=== PATIENT | male | born 2000 | race Caucasian/White ===

== ENCOUNTER 2019-01-25 14:50 | Emergency (ER) | payer OTHER, SELFPAY ==
[2019-01-25 14:55] VITALS: BP 122/77; PULSE 73; RESP 16; TEMP 37.1; O2SAT 100
--- NOTE | 2019-01-25 15:21 | W.ED.GENAD ---
Discharge Plan Disposition Patient Disposition: HOME Condition: Stable Discharge Details Chief Complaint: EyeProblem Clinical Impression: Redness of eye, left Primary Care Provider: Jenny,Local ED Provider: Edel Moon Home Meds and New Rx's Prescriptions: No Action No Known Home Meds RF: 0 Discharge Instructions Instructions: Conjunctivitis (ED) Additional Instructions: Apply cool compresses to your left eye several times daily while symptoms present You can alternate Tylenol and Motrin as needed and directed for pain. Start the antibiotic ointment if you develop any pain, crusting, discharge. Follow-up with your primary care doctor next week for reevaluation as needed. Return to the emergency department if you develop any worsening or new concerning symptoms such as headache, worsening blurry vision, dizziness or any other concerns. Discharge Data Discharge Physician: Edel Moon Medical Decision Making 18yo M w/ a c/o left eye redness and itching since last night. States itching is pretty much resolved and denies any complaint of irritation, pain, foreign body sensation, discharge or significant blurry vision, headache or dizziness. Visual acuity 20/20 OU, OD, OS. Left eye notes injected conjunctive but without chemosis, discharge, obvious foreign body with eyelid eversion, with PERRLA, EOMI. Discussed with patient that would recommend fluorescein staining to look for corneal abrasion but he is declining this stating he does not think he got anything in his eye. Discussed that differential diagnosis can include possible abrasion, foreign body which is now possibly removed, allergic versus viral versus bacterial conjunctivitis. Presentation does not appear consistent with uveitis. We will send home with a prescription for erythromycin to start if symptoms do not improve or worsen. He is advised to follow up with a primary care doctor and return here anytime if worse. Medical Records Medical records reviewed: Yes I reviewed the patient's medical records. HPI General Mode of arrival: ambulatory. Date/Time Provider Initiated Documentation: 01/25/19 14:59. Limitations to Documentation: no limitations. Information obtained by: patient. HPI Narrative: Patient is a 18-year-old male who presents for left eye redness and itching since last night. Patient states he is currently a student and denies any injury to his eye. He states last night it began itching and today a friend pointed out to him that his left eye appeared red which patient was unaware of. He does not wear contacts or glasses. He admits to some fuzzy vision like an eyelash is sometimes in my eye but otherwise denies any significant blurry vision. He denies any yellow discharge or crusting, headache, dizziness. He has had recent occasional runny nose and sore throat but states this is resolved. He denies any foreign body sensation. Related Data Home Medications Medication Instructions Recorded Confirmed Unknown [No Known Home Meds] 01/25/19 01/25/19 Allergies Allergy/AdvReac Type Severity Reaction Status Date / Time No Known Allergies Allergy Unverified 01/25/19 14:58 General Stated Complaint: EyeProblem AKILA: 4 Review of Systems All systems reviewed & are unremarkable except as noted in HPI and below Constitutional Constitutional: Reports as per HPI, Denies chills and Denies fever(s) Eyes Eyes: Reports blurry vision, Reports itchy eyes and Reports other (red eye) ENT Ears, Nose, Mouth, and Throat: Denies dizziness, Denies sore throat and Denies throat swelling Cardiovascular Cardiovascular: Denies chest pain and Denies dyspnea Respiratory Respiratory: Denies cough and Denies dyspnea Gastrointestinal Gastrointestinal: Denies abdominal pain, Denies diarrhea and Denies vomiting Genitourinary Genitourinary: Denies hematuria and Denies dysuria Musculoskeletal Musculoskeletal: Denies back pain and Denies numbness Integumentary/Breasts Skin/Breast: Denies lesions and Denies rash Neurologic Neurologic: Denies dizziness, Denies focal weakness and Denies numbness Allergic/Immunologic Allergic/Immunologic: Reports itchy eyes and Denies throat swelling [facility] Medical History Absence epilepsy (Acute) Surgical History No significant past surgical history (Acute) Social History Smoking/Tobacco Use Status: Current every day Tobacco Type: e-cigarettes Alcohol Intake: current Alcohol Intake frequency: a few times a week Substance use type: marijuana Exam Const General: cooperative, healthy appearing and no acute distress HENMT Head: normal to inspection Ears: hearing grossly normal bilaterally, external ears normal and TM's normal bilaterally General nose exam: external nose normal Face and sinus: normal facial exam Mouth: oral mucosae normal Throat: posterior oropharynx normal Eyes General: appearance normal, both eyes and all related structures Periorbital: periorbital findings normal Eyelids: eyelids normal and other (No foreign body noted with left eyelid eversion.) Conjunctivae: conjunctival abnormality left conjunctival injection diffuse; Negative for conjunctival icterus, without chemosis, without discharge, without pallor, without pterygia and without subconjunctival hemmorhages Pupils: PERRL EOM: EOM intact bilaterally Neck Neck: normal visual inspection and No submandibular swelling Lymphatic: no lymphadenopathy noted Resp Effort & Inspection: normal respiratory effort and able to speak in complete sentences Cardio Rate: regular rate Neuro General: alert, awake and oriented x3 Cognition: normal cognition Speech: speech normal Extrem General: normal to inspection Psych Appearance: grossly normal Mental Status: mental status grossly normal Speech and Movement: speech and movement normal Affect: normal affect Course Vital Signs Vital signs: Vital Signs Temperature 98.8 F 01/25/19 14:55 Pulse 73 01/25/19 14:55 Respiratory Rate 16 01/25/19 14:55 Blood Pressure 122/77 01/25/19 14:55 Pulse Oximetry 100 01/25/19 14:55 Temperature 98.8 F 01/25/19 14:55 Temperature Source Skin 01/25/19 14:55 Pulse 73 01/25/19 14:55 Respiratory Rate 16 01/25/19 14:55 Respiratory Effort Non-Labored 01/25/19 14:55 Blood Pressure 122/77 01/25/19 14:55 Blood Pressure Position Sitting 01/25/19 14:55 Pulse Oximetry 100 01/25/19 14:55 Oxygen Delivery Method Room Air 01/25/19 14:55 Oxygen Flow Rate 0 01/25/19 14:55 Pain Level 0 01/25/19 14:55
[2019-01-25] MEDS: Erythromycin Ophth Oint 3.5 GM TUBE (15:23)
== END 2019-01-25 15:36 | disposition home or self-care (01) ==
PROVIDERS: Emergency Provider Physician Assistant
DX: H57.89 Other specified disorders of eye and adnexa (principal)
CPT/HCPCS: 99283

== ENCOUNTER 2019-02-06 11:57 | Emergency (ER) | payer OTHER, SELFPAY ==
[2019-02-06 11:47] VITALS: BP 135/114; PULSE 63; RESP 16; TEMP 36.4; O2SAT 99
[2019-02-06] MEDS: HYDROmorphone 2 MG/ML VIAL ×2 (12:05→15:56)
--- NOTE | 2019-02-06 12:20 | DI.RAD_ITS ---
EXAM: XR TIB/FIB LT INDICATION: trauma, tender. COMPARISON: No exams were available for comparison TECHNIQUE: 2D digital imaging was performed. FINDINGS: There is a comminuted nondisplaced fracture at the junction of the proximal and middle thirds of the left tibia. There is also mildly displaced fracture of the proximal left fibula. The distal fibular fracture fragment is displaced medially 1/3 shafts width. No radiopaque foreign bodies are seen in the soft tissues. IMPRESSION: Fractures involving the proximal left tibia and fibula.
--- NOTE | 2019-02-06 12:21 | W.ED.GENAD ---
Discharge Plan Disposition Patient Disposition: HOME Discharge Details Chief Complaint: Orthopedic Clinical Impression: Fx upper tibia/fibula-closed Primary Care Provider: Jenny,Local ED Provider: Mikey Wade Home Meds and New Rx's Prescriptions: New ibuprofen 600 mg tablet 600 mg PO Q6H PRN (Reason: pain) Qty: 60 RF: 0 Discharge Instructions Additional Instructions: Please take acetaminophen (tylenol) - 650mg every 6 hours by mouth as needed for pain. Take ibuprofen as prescribed -- Take 600mg by mouth every 6 hours as needed for pain. Keep leg elevated as much as possible. Use crutches when needed for ambulation. Please contact orthopedics to arrange follow-up. Return to the ER for any worsening or new concerning symptoms. Referrals: Cooper Muñiz MD [ [facility] STAFF PHYSICIAN] - Discharge Data Discharge Date/Time-TO BE ENTERED AT DEPARTURE: 02/06/19 17:45 Medical Decision Making 18-year-old male here with left lower extremity injury while snowboarding, tender palpation with crepitus midshaft tibia anteriorly.. N/V intact distally. boot was removed cautiously after dilaudid 1mg vV for analgesia. Posterior lower leg splint applied by me. xray of tib fib reviewed and interpreted by me: Nondisplaced, comminuted, fracture of the proximal tibial shaft, fracture of the fibula mildly displaced. Orthopedics was consulted. Dr. Ramos evaluated the patient. A posterior long-leg splint was applied by the and Dr. Ramos. Patient is experiencing some movement of fracture when he moves his leg. Repeat x-rays show no displacement of fracture. Dr. Muñiz here to augment splint. Plan for discharge will be for patient to follow-up with orthopedics. Usual and customary discharge instructions were provided. HPI General Mode of arrival: ambulatory. Date/Time Provider Initiated Documentation: 02/06/19 12:07. Limitations to Documentation: no limitations. Information obtained by: patient. HPI Narrative: 18-year-old male presents with chief complaint of leg pain. Patient has severe pain in his left anterior lower leg. Patient notes he was snowboarding and hit his leg directly on a rail. This occurred just prior to arrival. Pain has persisted. Pain worse with any movement and he has associated crepitus. No numbness. No other injury. Related Data Home Medications Medication Instructions Recorded Confirmed ibuprofen 600 mg PO Q6H PRN #60 tab 02/06/19 02/28/19 Previous Rx's Medication Instructions Recorded ibuprofen 600 mg PO Q6H PRN #60 tab 02/06/19 Allergies Allergy/AdvReac Type Severity Reaction Status Date / Time No Known Allergies Allergy Verified 02/28/19 15:29 General Stated Complaint: Orthopedic AKILA: 3 Review of Systems All systems reviewed & are unremarkable except as noted in HPI and below Musculoskeletal Musculoskeletal: Reports as per HPI and Denies tingling Neurologic Neurologic: Denies tingling and Denies paresthesias PFSH Medical History Absence epilepsy (Acute) Surgical History No significant past surgical history (Acute) Social History Smoking/Tobacco Use Status: Current every day Tobacco Type: e-cigarettes Alcohol Intake: current Alcohol Intake frequency: a few times a week Substance use type: marijuana Current gender identity: male Exam Const General: cooperative, uncomfortable and anxious HENMT Head: normocephalic and atraumatic Mouth: moist mucous membranes Neck Neck: trachea midline, supple and nontender Resp Auscultation: clear to auscultation bilaterally, no rales, no rhonchi and no wheezes Cardio Jugular venous pressure: no JVD Rate: regular rate and not tachycardic Rhythm: regular rhythm Pulses: posterior tibial pulses present on the left 2+ GI Palpation: soft, not firm, no guarding, no masses, not rigid and nontender Skin General skin exam: no rashes or lesions noted Neuro General: alert, awake, oriented x3 and tone normal Extrem General: normal capillary refill and no edema Left lower extremity: lower leg Details: tenderness Location: of the midshaft tibia and crepitus Course Vital Signs Vital signs: Vital Signs Temperature 36.4 C L 02/06/19 11:47 Pulse 63 02/06/19 11:47 Respiratory Rate 16 02/06/19 11:47 Blood Pressure 135/114 H 02/06/19 11:47 Pulse Oximetry 99 02/06/19 11:47 Temperature 36.4 C L 11/12/19 11:47 Temperature Source Skin 02/06/19 11:47 Pulse 63 02/06/19 11:47 Respiratory Rate 16 02/06/19 11:47 Respiratory Effort Non-Labored 02/06/19 11:47 Blood Pressure 135/114 H 02/06/19 11:47 Blood Pressure Position Supine 02/06/19 11:47 Pulse Oximetry 99 02/06/19 11:47 Oxygen Delivery Method Room Air 02/06/19 11:47 Oxygen Flow Rate 0 02/06/19 11:47 Pain Level 9 02/06/19 11:47
[2019-02-06 13:05] VITALS: BP 102/74; PULSE 78; RESP 18; O2SAT 98
--- NOTE | 2019-02-06 14:10 | NUR.NOTE ---
Danitza GREGORY bedside. Nursing Note:
--- NOTE | 2019-02-06 15:24 | DI.RAD_ITS ---
EXAM: XR TIB/FIB LT INDICATION: fx, post splint. COMPARISON: XR TIB/FIB LT from 02/06/2019 TECHNIQUE: 2D digital imaging was performed. FINDINGS: The nondisplaced comminuted fracture of the proximal left tibia appears stable. The proximal fibular fracture increased displacement compared to the prior examination. The distal fracture component is now displaced 1 shaft's width medially. No new fracture is appreciated. IMPRESSION: Increased displacement of the proximal left fibular fracture. Stable nondisplaced proximal left tibial fracture.
[2019-02-06 15:45] VITALS: BP 100/50; PULSE 72; RESP 18; O2SAT 100
[2019-02-06] MEDS: Ketorolac 15 MG/ML VIAL (15:58)
[2019-02-06] MEDS: Ondansetron 4 MG/2 ML VIAL (16:36)
--- NOTE | 2019-02-06 17:19 | DI.RAD_ITS ---
EXAM: XR TIB/FIB LT INDICATION: eval L tib casting. COMPARISON: XR TIB/FIB LT from 02/06/2019 TECHNIQUE: 2D digital imaging was performed. FINDINGS: There is again seen a nondisplaced fracture involving the proximal left tibia. No change in alignmen t of the fracture is noted. There is again seen a displaced fracture of the proximal left fibula. T he distal fracture is displaced medially 1 shaft's width. The patient's lower leg is in a cast. IMPRESSION: Stable alignment of the left tibial and fibular fractures.
--- NOTE | 2019-02-06 17:23 | DI.VRAD_ITS ---
PROCEDURE INFORMATION: Exam: XR Left Tibia and Fibula Exam date and time: 02/06/2019 5:14 PM Clinical history: 18 years old, male; Other: Eval L tib casting TECHNIQUE: Imaging protocol: XR Left tibia and fibula. Views: 2 views. COMPARISON: CR XR TIB/FIB LT 02/06/2019 3:17 PM FINDINGS: Bones/joints: There are a slightly comminuted slightly oblique fracture of the proximal tibial shaft. There is very minimal impaction without significant displacement. There is a proximal fibular shaft fracture with approximately one shaft width of displacement. Soft tissues: Overlying cast noted. IMPRESSION: Proximal tibial and fibular fractures as noted. COMMENT: Preliminary interpretation is based on receipt of 3 image(s). A final report will be issued subsequently. Dictated and Authenticated by: Lenora Milian MD. Ordering:TISHA Marte MD
[2019-02-06 17:46] VITALS: BP 117/47; PULSE 83; RESP 18; TEMP 36.8; O2SAT 99
--- NOTE | 2019-02-07 20:55 | W.ORTHOCONSU ---
Date of service: 02/06/19 Time of Service: 15:55 History of Present Illness History of Present Illness Chief Complaint: Left leg pain Narrative: Jose is a 18-year-old who was snowboarding earlier today. He was coming off of a railing caught on the post with the front of his left leg. He had immediate pain and inability to ambulate. He is brought in by emergency services. He denies any head trauma. He reports the sensation of something is crunching. He denies any previous injury to this left leg. He has no numbness or tingling. Consults Consult date: 02/06/19 Requesting physician: Mikey Wade Consult Reason Left tib-fib fracture Assessment and Plan Assessment and plan (1) Fracture of left tibia and fibula: Start date: 02/06/19 Status: Acute Assessment and plan: Jose is a 18-year-old who suffered a left tib-fib fracture while snowboarding. Fortunately, the fracture is anatomically aligned. While there are some benefits for operative intervention, given his younger age, I do think this can be treated nonoperatively. He will need to be in a long-leg cast for at least 6 weeks which will be quite inconvenient but I think this has a chance to heal without surgery. I would follow very closely with weekly radiographs for [address] Muñiz assisted me in placing a long-leg cast which was then bivalved. He reported excellent pain control and stability and was able to move around on his own with a cast in place. If this fracture shifts at all then I would quickly offer operative intervention. While intramedullary nail fixation would provide the ability to mobilize slightly quicker, and also has some drawbacks which could be avoided with nonoperative treatment. After discussing this with Jose and his mom over the phone, they both agreed to proceed with nonoperative treatment and he tolerated the casting quite well. I would recommend he is seen in 1 week with repeat x-rays. Qualifiers: Encounter type: initial encounter Fracture type: closed Qualified Code(s): S82.202A - Unspecified fracture of shaft of left tibia, initial encounter for closed fracture; S82.402A - Unspecified fracture of shaft of left fibula, initial encounter for closed fracture Review of Systems All systems reviewed & are unremarkable except as noted in HPI and below PFSH Medical History Absence epilepsy (Acute) Surgical History No significant past surgical history (Acute) Social History Smoking/Tobacco Use Status: Current every day Tobacco Type: e-cigarettes Alcohol Intake: current Alcohol Intake frequency: a few times a week Substance use type: marijuana Exam Narrative Exam Narrative: No acute distress. Anxious. Reclined in hospital stretcher. Head is normocephalic and atraumatic. Alert and oriented x3. Evaluation of the left leg shows no skin changes. No areas of laceration or abrasion. There is some swelling noted in the proximal aspect of the left leg. There is tenderness palpation of the proximal left leg. No effusion of the knee. No pain to palpation of the left knee itself. Intact ankle dorsiflexion, plantarflexion, albeit very limited, as well as great toe extension and flexion. Sensation intact light touch over the deep and superficial peroneal nerves and tibial nerve. Palpable DP and PT pulse. Results Last Vital Signs Temp 36.8 C 02/06/19 17:46 Pulse 83 02/06/19 17:46 Resp 18 02/06/19 17:46 BP 117/47 L 02/06/19 17:46 Pulse Ox 99 02/06/19 17:46 Imaging Imaging Studies: X-ray of the left tibia and fibula demonstrates a mostly transverse fracture of the proximal one third tibia and fibula. There is some mild comminution of the tibia but overall alignment is anatomic. There is some slight translation of the fibular fragment but there is no mallet angulation. Repeat images within the cast also demonstrate preserved alignment.
== END 2019-02-06 17:45 | disposition home or self-care (01) ==
PROVIDERS: Emergency Provider Student in an Organized Health Care Education/Training Program
DX: S82.252A Displaced comminuted fracture of shaft of left tibia, initial encounter for closed fracture (principal); S82.452A Displaced comminuted fracture of shaft of left fibula, initial encounter for closed fracture; V00.312A Snowboarder colliding with stationary object, initial encounter; Y93.23 Activity, snow (alpine) (downhill) skiing, snowboarding, sledding, tobogganing and snow tubing
CPT/HCPCS: 96374; 96375; 99253; 99283; 99284; 29345; 73590; E0114; J1885; J2405; L3807

== ENCOUNTER 2019-02-15 11:00 | Outpatient (CLI) | payer OTHER, SELFPAY ==
--- NOTE | 2019-02-15 10:49 | DI.RAD_ITS ---
EXAM: XR TIB/FIB LT INDICATION: F/U FRACTURE. COMPARISON: XR TIB/FIB LT from 02/06/2019 TECHNIQUE: 2D digital imaging was performed. FINDINGS: There has been no significant change in alignment of the proximal left tibial and fibular fractures. The patient's lower leg is in a cast.
== END 2019-02-15 11:20 ==
PROVIDERS: Visit Provider Student in an Organized Health Care Education/Training Program
DX: S82.202D Unspecified fracture of shaft of left tibia, subsequent encounter for closed fracture with routine healing (principal); S82.402D Unspecified fracture of shaft of left fibula, subsequent encounter for closed fracture with routine healing; X58.XXXD Exposure to other specified factors, subsequent encounter
CPT/HCPCS: 99212; 99213; 73590

== ENCOUNTER 2019-02-28 15:34 | Outpatient (CLI) | payer OTHER, SELFPAY ==
--- NOTE | 2019-02-28 16:19 | DI.RAD_ITS ---
EXAM: XR TIB/FIB LT INDICATION: fracture f/u. COMPARISON: XR TIB/FIB LT from 02/15/2019 TECHNIQUE: 2D digital imaging was performed. FINDINGS: The cast has been removed. There are fractures extending mainly transversely through the proximal ti sydnie and fibula. There has been no significant change from the previous exam. IMPRESSION: Stable fractures of the proximal tibia and fibula.
== END 2019-02-28 15:54 ==
PROVIDERS: Visit Provider Student in an Organized Health Care Education/Training Program
DX: S82.202D Unspecified fracture of shaft of left tibia, subsequent encounter for closed fracture with routine healing (principal); S82.402D Unspecified fracture of shaft of left fibula, subsequent encounter for closed fracture with routine healing; V00.318D Other snowboard accident, subsequent encounter
CPT/HCPCS: 29405; 99214; 73590

== ENCOUNTER 2019-04-03 08:56 | Outpatient (CLI) | payer OTHER, SELFPAY ==
--- NOTE | 2019-04-03 09:37 | DI.RAD_ITS ---
EXAM: XR TIB/FIB LT INDICATION: f/u fracture left tib/fib. COMPARISON: No exams were available for comparison TECHNIQUE: 2D digital imaging was performed. FINDINGS: There is slightly increased lateral and posterior angulation at the proximal tibial fracture when com pared with the previous exam. There is callus formation around the fracture. The proximal fibular f racture is unchanged.
== END 2019-04-03 09:16 ==
PROVIDERS: Visit Provider Student in an Organized Health Care Education/Training Program
DX: S82.202D Unspecified fracture of shaft of left tibia, subsequent encounter for closed fracture with routine healing (principal); S82.402D Unspecified fracture of shaft of left fibula, subsequent encounter for closed fracture with routine healing; X58.XXXD Exposure to other specified factors, subsequent encounter
CPT/HCPCS: 99213; L4361; 73590

== ENCOUNTER 2019-05-08 11:18 | Outpatient (CLI) | payer OTHER, SELFPAY ==
--- NOTE | 2019-05-08 11:18 | DI.RAD_ITS ---
EXAM: XR TIB/FIB LT INDICATION: fx L distal tib. COMPARISON: XR TIB/FIB LT from 04/03/2019 TECHNIQUE: 2D digital imaging was performed. FINDINGS: There is increased callus formation seen around the fractures of the proximal tibia and fibula. The alignment is unchanged. No new abnormalities are seen.
== END 2019-05-08 11:38 ==
PROVIDERS: Visit Provider Student in an Organized Health Care Education/Training Program
DX: S82.252D Displaced comminuted fracture of shaft of left tibia, subsequent encounter for closed fracture with routine healing (principal); S82.452D Displaced comminuted fracture of shaft of left fibula, subsequent encounter for closed fracture with routine healing
CPT/HCPCS: 99213; 73590

== ENCOUNTER 2019-06-27 09:15 | Outpatient (CLI) | payer OTHER, SELFPAY ==
--- NOTE | 2019-06-27 09:00 | DI.RAD_ITS ---
EXAM: XR TIB/FIB LT CLINICAL HISTORY: Follow Up TECHNIQUE: 2D digital imaging was performed. COMPARISON: XR TIB/FIB LT from 05/08/2019 FINDINGS: There has been continued healing of the proximal tibial and fibular fractures. The alignment is unch anged. No new abnormalities are seen.
== END 2019-06-27 09:35 ==
PROVIDERS: Visit Provider Student in an Organized Health Care Education/Training Program
DX: S82.252D Displaced comminuted fracture of shaft of left tibia, subsequent encounter for closed fracture with routine healing (principal); S82.452D Displaced comminuted fracture of shaft of left fibula, subsequent encounter for closed fracture with routine healing; X58.XXXD Exposure to other specified factors, subsequent encounter
CPT/HCPCS: 99213; 73590

== ENCOUNTER → 2020-02-05 09:40 | Outpatient (BNVA) | payer OTHER, SELFPAY | PROVIDERS: Visit Provider Student in an Organized Health Care Education/Training Program | DX: R69 Illness, unspecified (principal) ==

== ENCOUNTER 2022-05-07 11:55 | Emergency (ER) | payer OTHER, SELFPAY ==
[2022-05-07 11:59] VITALS: BP 138/76; PULSE 77; RESP 18; TEMP 36.7; O2SAT 100
--- NOTE | 2022-05-07 12:36 | ED.GENADUL_ITS ---
Discharge Plan Disposition Patient Disposition: Home Discharge Details Clinical Impression: Acute myofascial strain of lumbar region Primary Care Provider: Jenny,Local ED Provider: Charleen Espinoza Home Meds and New Rx's Prescriptions: New cyclobenzaprine 10 mg tablet 10 mg PO TID PRN (Reason: muscle spasm) Qty: 10 0RF Discharge Instructions Instructions: Muscle Strain (ED) Additional Instructions: Take the muscle relaxers as directed. Do not operate heavy machinery or drink alcohol while on this medication it may make you sleepy. Please take Tylenol or Ibuprofen with food every 4-6 hours as needed for pain and swelling. Alternate ice and heat, you may apply tnja-xyv-[id number] IcyHot or similar. Try massage. Follow up with primary care provider in 3-5 days. Return to ED sooner if any loss of bowel or bladder control, feeling like you need to urinate but cannot, numbness around your groin area, weakness in your legs or concerns. Increase oral fluids. Stand Alone Forms: Work Release Discharge Data Discharge Date/Time-TO BE ENTERED AT DEPARTURE: 05/07/22 12:55 Medical Decision Making 21-year-old male presents to the ER with a chief complaint of right lower back pain which began last night. He reports that he was recently at a hotel and a very soft uncomfortable bed thinks that that might have exacerbated the symptoms. He denies any falls injuries or known injuries or heavy lifting. He does work as a av specialist. He denies any radiculopathy or radiation of pain into his legs denies any saddle anesthesia no loss of bowel or bladder control. He has been taking Tylenol ibuprofen with some relief. On exam patient does have some right paraspinous tenderness and muscle spasm. He is moving slightly stiffly, no foot drop or abnormal gait. Denies any saddle anesthesia, loss of bowel or bladder control or feeling as if he needs to urinate but cannot. Denies any red flags weakness numbness tingling in his legs. The pain does stop around his hips. Clinically his exam is consistent with musculoskeletal strain. At this time due to no injury or other symptoms imaging was not ordered at this time. Patient was given Flexeril to go and a lidocaine patch. Patient denies any problems urinating or burning with urination. Discussed red flags and strict return instructions and follow-up care. He verbalized understanding. This text was generated using [employer] dictation system, please disregard any oddities of phrase or misspellings. HPI General Mode of arrival: ambulatory . Date/Time Provider Initiated Documentation: 05/07/22 12:08 . Limitations to Documentation: no limitations . Information obtained by: patient, RN notes reviewed and old records reviewed . HPI Narrative: 21-year-old male presents to the ER with a chief complaint of right lower back pain which began last night. He reports that he was recently at a hotel and a very soft uncomfortable bed thinks that that might have exacerbated the symptoms. He denies any falls injuries or known injuries or heavy lifting. He does work as a av specialist. He denies any radiculopathy or radiation of pain into his legs denies any saddle anesthesia no loss of bowel or bladder control. He has been taking Tylenol ibuprofen with some relief. Patient does not endorse occasional smoking occasional marijuana and occasional alcohol. Related Data Home Medications Medication Instructions Recorded Confirmed cyclobenzaprine 10 mg tablet 10 mg PO TID PRN muscle spasm #10 05/07/22 tabs Previous Rx's Medication Instructions Recorded cyclobenzaprine 10 mg tablet 10 mg PO TID PRN muscle spasm #10 05/07/22 tabs Allergies Allergy/AdvReac Type Severity Reaction Status Date / Time No Known Allergies Allergy Verified 05/07/22 12:01 General Stated Complaint: Nk/Back Pain AKILA: 4 Review of Systems All systems reviewed & are unremarkable except as noted in HPI and below ENT Ears, Nose, Mouth, and Throat: Denies neck pain Genitourinary Genitourinary: Denies difficulty urinating, Denies dysuria, Denies flank pain, Denies testicular pain, Denies urinary frequency and Denies urinary urgency Musculoskeletal Musculoskeletal: Reports as per HPI, Reports back pain, Denies muscle weakness, Denies neck pain, Denies numbness, Denies radiating pain into limb, Reports stiffness and Denies tingling Neurologic Neurologic: Denies numbness and Denies tingling [facility] All Active Problems (Updated 05/07/22 @ 12:44 by Charleen Espinoza NP) Acute myofascial strain of lumbar region (Acute) No-show for appointment (Acute) Fracture of left tibia and fibula (Acute 02/06/19) Medical History (Updated 05/07/22 @ 12:44 by Charleen Espinoza NP) Absence epilepsy Surgical History No significant past surgical history Social History Smoking/Tobacco Use Status: Current-Occasional Tobacco Type: e-cigarettes Smoking risk assessment performed?: Yes Alcohol Intake: former Substance use type: marijuana Current gender identity: male Do you feel safe at home: Yes Do you feel safe in your relationship?: Yes Exam Narrative Exam Narrative: Constitutional: Alert and oriented x3. Appears stated age. Normal body habitus. Head: Normocephalic, no trauma. Eyes: Pupils PERRL, EOM's intact. Eyelids symmetrical without lesions, disc harge, or swelling. Chest: RRR, Normal S1, S2, distal pulses intact. Resp: Lungs clear to auscultation bilaterally, no wheezes, rales, or rhonchi. Abdomen: Soft, non-distended, Normoactive bowel sounds all 4 quads. Musculoskeletal: Stiff gait, 5/5 strength to all four extremities. Right paraspinous tenderness in the lower lumbar area, muscle spasm noted. Skin: No suspicious rashes or lesions. Capillary refill less than 2 sec. Neurologic: Cranial nerves II-XII intact. Alert and oriented x 3. Motor: No deficits noted. Sensory: Intact bilaterally all 4 extremities. Course Vital Signs Vital signs: Vital Signs Temperature 36.7 C 05/07/22 11:59 Pulse 77 05/07/22 11:59 Respiratory Rate 18 05/07/22 11:59 Blood Pressure 138/76 05/07/22 11:59 Pulse Oximetry 100 05/07/22 11:59 Temperature 36.7 C 05/07/22 11:59 Temperature Source Temporal Artery Scan 05/07/22 11:59 Pulse 77 05/07/22 11:59 Respiratory Rate 18 05/07/22 11:59 Respiratory Effort Normal, Non-Labored 05/07/22 12:00 Blood Pressure 138/76 05/07/22 11:59 Pulse Oximetry 100 05/07/22 11:59 Oxygen Delivery Method Room Air 05/07/22 11:59 Oxygen Flow Rate 0 05/07/22 11:59 Pain Level 5 05/07/22 12:14 PAWSS Have you Been Recently Intoxicated or Drunk Within the Last 30 days?: No Have you Ever Experienced Previous Episodes of Alcohol Withdrawal?: No Have you ever Experienced Withdrawal Seizures?: No Have you ever Experienced Delirium Tremens(DT)s?: No Have you ever undergone Alcohol Rehabilitation Treatment (i.e, inpt ot outpatient treatment programs)?: No Have you ever Experienced Blackouts?: No Have you ever Combined Alcohol with other Downers within the last 90 days?: No Have you ever Combined Alcohol with any other Substance of Abuse during the last 90 days?: No Positive Blood Alcohol level on Presentation? [PCS.BAL]: No Evidence of Increased Autonomic Activity (i.e. HR>120, tremor, sweating, agitation, nausea)?: No Result: 0
[2022-05-07] MEDS: Lidocaine 5% Patch 1 PATCH TP (12:45)
[2022-05-07] MEDS: Cyclobenzaprine 10 MG TAB, 3 TABS/BTL PO (12:46)
== END 2022-05-07 12:55 | disposition home or self-care (01) ==
PROVIDERS: Emergency Provider Registered Nurse Emergency
DX: S39.012A Strain of muscle, fascia and tendon of lower back, initial encounter (principal); X58.XXXA Exposure to other specified factors, initial encounter
CPT/HCPCS: 99283

== ENCOUNTER 2023-01-05 07:57 | Emergency (ER) | payer OTHER, SELFPAY ==
[2023-01-05 08:02] VITALS: BP 126/80; PULSE 90; RESP 18; TEMP 36.7; O2SAT 99
--- NOTE | 2023-01-05 08:50 | NUR.NOTE ---
Nursing Note:Pt is declining lab work and medication ordered at this time. States he is feeling better. SANDRA Ramirez aware and is speaking to pt.
--- NOTE | 2023-01-05 11:23 | ED.GENADUL_ITS ---
Discharge Plan Disposition Patient Disposition: Home Condition: Stable Discharge Details Clinical Impression: Abdominal pain Primary Care Provider: Jenny,Local ED Provider: Jessica Ramirez Home Meds and New Rx's Prescriptions: Discontinued cyclobenzaprine 10 mg tablet 10 mg PO TID PRN (Reason: muscle spasm) Qty: 10 0RF Patient Comments: pt states not currently taking Discharge Instructions Instructions: Abdominal Pain (ED) Additional Instructions: Please return should you develop recurrence of your pain We have not performed any blood work or further investigation into the cause of your pain, so if you like to be reevaluated please return for reassessment Discharge Data Discharge Date/Time-TO BE ENTERED AT DEPARTURE: 01/05/23 08:51 Medical Decision Making 22-year-old male presenting with abdominal pain, pain resolving at time of assessment, labs were ordered in addition to an antispasmodic given benign exam, patient's pain resolved completely prior to drawing labs and he is requested discharge home, his abdominal exam on reassessment is benign specifically no rebound or guarding, nonspecific mild tenderness, no abdominal bruit or pulsatile mass, no CVA tenderness,, he is aware that has not been fully evaluated and is leaving prior to complete assessment, he is instructed to return should he have new or worsening complaints HPI General Date/Time Provider Initiated Documentation: 01/05/23 08:08 . HPI Narrative: This 22-year-old male presents with abdominal pain since this morning. Describes it as cramping sensation. Denies any known sick contacts, nausea, vomiting. Denies chest pain or shortness of breath, denies any urinary symptoms. Denies prior abdominal surgeries. Related Data Allergies Allergy/AdvReac Type Severity Reaction Status Date / Time No Known Allergies Allergy Verified 05/07/22 12:01 General Stated Complaint: Abd Prob AKILA: 3 PFSH All Active Problems (Updated 01/05/23 @ 08:49 by SANDRA Magana) Abdominal pain (Acute) No-show for appointment (Acute) Fracture of left tibia and fibula (Acute 02/06/19) Medical History (Updated 01/05/23 @ 08:49 by SANDRA Magana) Absence epilepsy Surgical History No significant past surgical history Social History Smoking/Tobacco Use Status: Current-Occasional Tobacco Type: e-cigarettes Smoking risk assessment performed?: Yes Alcohol Intake: current Alcohol Intake frequency: a few times a month Alcohol type: beer Drug use: Rarely Substance use type: marijuana Current gender identity: male Do you feel safe at home: Yes Do you feel safe in your relationship?: Yes Course Vital Signs Vital signs: Vital Signs Temperature 36.7 C 01/05/23 08:02 Pulse 90 01/05/23 08:02 Respiratory Rate 18 01/05/23 08:02 Blood Pressure 126/80 01/05/23 08:02 Pulse Oximetry 99 01/05/23 08:02 Temperature 36.7 C 01/05/23 08:02 Pulse 90 01/05/23 08:02 Respiratory Rate 18 01/05/23 08:02 Respiratory Effort Normal, Non-Labored 01/05/23 08:08 Blood Pressure 126/80 01/05/23 08:02 Blood Pressure Position Supine 01/05/23 08:02 Pulse Oximetry 99 01/05/23 08:02 Oxygen Delivery Method Room Air 01/05/23 08:02 Oxygen Flow Rate 0 01/05/23 08:02 Pain Level 5 01/05/23 08:02
== END 2023-01-05 08:51 | disposition home or self-care (01) ==
PROVIDERS: Emergency Provider Physician Assistant
DX: R10.9 Unspecified abdominal pain (principal)
CPT/HCPCS: 80053; 83690; 99283; 85025; 86140

== ENCOUNTER 2023-09-24 12:57 | Emergency (ER) | payer SELFPAY ==
[2023-09-24 13:07] VITALS: BP 141/79; PULSE 84; RESP 14; TEMP 36.3; O2SAT 100
--- NOTE | 2023-09-24 13:15 | DI.CT_ITS ---
Exam(s) CT RENAL COLIC WO EXAM: CT RENAL COLIC WO CLINICAL HISTORY: left flank pain. TECHNIQUE: Imaging Protocol: Axial computed tomography images with coronal and sagittal reformatted images were created and reviewed. COMPARISON: No exams were available for comparison FINDINGS: ABDOMEN: Lung Bases: Normal where visualized. Liver: Normal density. No measurable mass. Gallbladder and biliary tract: No radiodense calculus or biliary ductal dilation. Pancreas: Normal density, no abnormal calcifications or inflammatory process. Spleen: Normal. Kidneys: Normal size, contour and axis.No radiodense stones or obstructive uropathy. No masses seen. Adrenal glands: No mass is seen. Lymph nodes: Within normal limits. Abdominal Aorta: Abdominal portion non-dilated. PELVIS: Bladder:There is diffuse thickening of the wall of the urinary bladder. Bowel: No obstruction or bowel wall thickening. Appendix is unremarkable. Peritoneal cavity: No ascites, collection or mesenteric inflammatory response. No free air. Reproductive organs: Unremarkable as visualized. Bones: Within normal limits. There is a sclerotic focus in the left ilium probably reflecting a bone island. If clinically indicated (clinical history of neoplasm), nuclear medicine bone scan may be ob tained for further evaluation. Soft Tissues: Within normal limits. IMPRESSION: 1. No evidence of nephrolithiasis or obstructive uropathy. 2. Diffuse thickening of the wall of the urinary bladder. This may be due to underdistention. Cysti tis should be considered. Please correlate clinically. RADIATION DOSE DELIVERED: 573.71mGy.cm Total DLP DATA REPOSITORY: All CT scans at this facility are submitted to the National Radiology Data Registry (NRDR) Dose Index Registry (DIR) with the [employer] (ACR). RADIATION OPTIMIZATION: All CT scans at this facility use at least one of these dose optimization te chniques: automated exposure control; mA and/or kV adjustment per patient size (includes targeted exa ms where dose is matched to clinical indication); or iterative reconstruction.
[2023-09-24 13:16] VITALS: BP 141/79; PULSE 84; RESP 14; TEMP 36.3; O2SAT 100
[2023-09-24] MEDS: Ketorolac 10 MG TAB PO (13:53)
[2023-09-24 13:56] LABS: Abs Immature Grans 0.02 10^3/uL (0.0-0.06); Absolute Basophil Count 0.07 10^3/uL (0.0-0.2); Absolute Eosinophil Count 0.06 10^3/uL (0.0-0.7); Absolute Lymphocyte Count 2.06 10^3/uL (1.2-3.4); Absolute Neutrophil Count 6.53 10^3/uL (1.2-6.7); Basophils % 0.7 %; Eosinophils % 0.6 %; HCT 44.9 % (40.0-50.0); HGB 15.9 g/dL (13.5-17.5); Immature Grans % 0.2 %; Lymphocytes % 21.8 %; MCH 32.5 pg (27.0-33.0); MCHC 35.4 % (32.0-36.0); MCV 92 fL (80-95); Monocytes % 7.4 %; Neutrophils % 69.3 %; RBC 4.89 10^6/uL (4.36-5.78); RDW 11.4 % (11.8-14.1); RDW-SD 38.2 fL; WBC 9.44 10^3/uL (4.4-10.8)
[2023-09-24 14:16] LABS: Diff Comment Diff Reviewed; RBC Morphology Normal
--- NOTE | 2023-09-24 14:50 | ED.GENADUL_ITS ---
Discharge Plan Disposition Patient Disposition: Home Discharge Details Clinical Impression: Acute left flank pain Primary Care Provider: Unknown,Unknown ED Provider: Ori Shaffer Home Meds and New Rx's Prescriptions: No Action lamotrigine 25 mg tablet 50 mg PO QHS Patient Comments: TAKE 1 TABLET BY MOUTH EVERY MORNING AND 2 TABLETS AT BEDTIME bupropion HCl 150 mg tablet extended release 24 hr 150 mg PO DAILY Patient Comments: TAKE 1 TABLET BY MOUTH EVERY MORNING lamotrigine 25 mg tablet 25 mg PO QAM Discharge Instructions Instructions: Flank Pain ED Additional Instructions: At this time no emergent findings were noted on your labs or CT imaging for worrisome findings of your left flank pain. This could be simple musculoskeletal pain or too early to fully diagnose so continue to monitor symptoms and return immediately for any new or worsening of your condition Otherwise stay hydrated, use [id number] medication such as Tylenol or ibuprofen and follow-up with primary care provider if not improving Referrals: Primary Care Provider [Outside] (As needed for reassessment) HPI General Mode of arrival: ambulatory . Date/Time Provider Initiated Documentation: 09/24/23 13:05 . Limitations to Documentation: no limitations . Information obtained by: patient and RN notes reviewed . History of Present Illness 22 year old M presents to the emergency department with the chief complaint of Right flank pain, described as moderate, Quality is described as aching, Patient started experiencing this hour(s) (16) and it has been constant. No relieving factors improve symptom(s), Other factors that worsen symptoms (Vomiting) . Patient notes no other symptoms.. Patient did receive the following treatments prior to arrival, none Related Data Home Medications Medication Instructions Recorded Confirmed bupropion HCl 150 mg 24 hr tablet, 150 mg PO DAILY 09/24/23 09/24/23 extended release lamotrigine 25 mg tablet 25 mg PO QAM 09/24/23 09/24/23 lamotrigine 25 mg tablet 50 mg PO QHS 09/24/23 09/24/23 Allergies Allergy/AdvReac Type Severity Reaction Status Date / Time No Known Allergies Allergy Verified 09/24/23 13:10 General Stated Complaint: FlankPain AKILA: 3 Review of Systems Constitutional Constitutional: Denies chills, Denies fever(s) and Denies poor appetite Cardiovascular Cardiovascular: Denies chest pain and Denies dyspnea Respiratory Respiratory: Denies cough and Denies dyspnea Gastrointestinal Gastrointestinal: Denies abdominal pain, Denies diarrhea, Denies nausea and Reports vomiting Genitourinary Genitourinary: Denies hematuria, Denies oliguria and Reports flank pain Exam Const General: cooperative and no acute distress Orientation: alert, awake and oriented x3 Resp Effort & Inspection: normal respiratory effort and able to speak in complete sentences Auscultation: clear to auscultation bilaterally Cardio Rate: regular rate Rhythm: regular rhythm Heart Sounds: S1 normal and S2 normal GI Palpation: nontender General: CVA tenderness on the left (Mild) Neuro General: patient alert, patient awake and patient oriented x3 Extrem General: capillary refill normal Course Vital Signs Vital signs: Vital Signs Temperature 36.3 C L 09/24/23 13:07 Pulse 84 09/24/23 13:07 Respiratory Rate 14 09/24/23 13:07 Blood Pressure 141/79 H 09/24/23 13:07 Pulse Oximetry 100 09/24/23 13:07 Temperature 36.3 C L 09/24/23 13:16 Temperature Source Temporal Artery Scan 09/24/23 13:16 Pulse 84 09/24/23 13:16 Respiratory Rate 14 09/24/23 13:16 Respiratory Effort Normal, Non-Labored 09/24/23 13:15 Blood Pressure 141/79 H 09/24/23 13:16 Blood Pressure Position Sitting 09/24/23 13:16 Pulse Oximetry 100 09/24/23 13:16 Oxygen Delivery Method Room Air 09/24/23 13:16 Oxygen Flow Rate 0 09/24/23 13:16 Pain Level 7 09/24/23 13:16 Lab/Test Results Lab/Test Results: Laboratory Tests Range/Units 09/24/23 13:45 WBC (4.4-10.8) 10^3/uL 9.44 RBC (4.36-5.78) 10^6/uL 4.89 Hgb (13.5-17.5) g/dL 15.9 Hct (40.0-50.0) % 44.9 MCV (80-95) fL 92 MCH (27.0-33.0) pg 32.5 MCHC (32.0-36.0) % 35.4 RDW (11.8-14.1) % 11.4 L Plt Count (130-400) 10^3/uL MPV (8.0-11.0) fL Immature Gran % % 0.2 Neutrophils % % 69.3 Lymphocytes % % 21.8 Monocytes % % 7.4 Eosinophils % % 0.6 Basophils % % 0.7 Nucleated RBC % (0.0-0.3) % 0.0 Absolute Neutrophils (1.2-6.7) 10^3/uL 6.53 Absolute Lymphocytes (1.2-3.4) 10^3/uL 2.06 Absolute Monocytes (0.1-0.8) 10^3/uL 0.70 Absolute Eosinophils (0.0-0.7) 10^3/uL 0.06 Absolute Basophils (0.0-0.2) 10^3/uL 0.07 RBC Morphology Normal Medical Decision Making Patient presenting to the emergency department for chief complaint of left leg pain. Patient states that he had a couple drinks last night and became nauseous and vomited a few times. Nausea and vomiting have resolved but he has continued with significant left flank pain which is worsened throughout the day. He has been hydrating well and denies all other symptoms. Patient does state past medical history of epilepsy which he is compliant with his medication, and kidney stones at age 10. Physical exam shows mild left CVA tenderness, no abdominal tenderness, otherwise noncontributory exam. Given history and worsening pain will plan on performing labs, urinalysis, and CT imaging. Pending results will give ketorolac staff editor was able to get a purple top but none of the remaining tubes. Patient not wanting to be poked again with IV so requesting just to go to CT imaging which I told him the risk and benefit of not full lab workup. After this discussion we decided to proceed with oral ketorolac instead of IV and noncontrast CT imaging. Did review CBC which is overall nondiagnostic no shift or leukocytosis noted also no anemia or other findings of concern. CMP only shows a slightly decreased AST otherwise all findings within normal limits and lipase of 21. CT imaging reviewed along with radiologist interpretation that shows no acute findings. Patient encouraged to continue to monitor symptoms and return for new or worsening of condition otherwise to use [id number]-[id number] pain medication and continue to stay well-hydrated. After discussion of diagnosis and plan of care patient has no further needs, questions, or concerns and states clear understanding to return to the emergency department for any worsening symptoms. This documentation was generated using [employer] dictation system, please disregard any oddities of phrase or misspellings. Imaging Data Radiologic Study: Imaging: CT Scan Radiologist's impression: Exam(s) PROCEDURE INFORMATION: Exam: CT Abdomen And Pelvis Without Contrast Exam date and time: 09/24/2023 2:19 PM Age: 22 years old Clinical indication: Other: Left flank pain TECHNIQUE: Imaging protocol: Computed tomography of the abdomen and pelvis without contrast. COMPARISON: No relevant prior studies available. FINDINGS: Liver: Normal. No mass. Gallbladder and biliary ducts: Normal. No calcified stones. No ductal dilation. Pancreas: Normal. No ductal dilation. Spleen: Normal. No splenomegaly. Adrenal glands: Normal. No mass. Kidneys and ureters: There is no evidence of renal or ureteral calcifications. Stomach and bowel: Unremarkable. No obstruction. No mucosal thickening. Appendix: Normal appendix Intraperitoneal space: Unremarkable. No free air. No significant fluid collection. Vasculature: Unremarkable. No abdominal aortic aneurysm. Lymph nodes: Unremarkable. No enlarged lymph nodes. Urinary bladder: Unremarkable as visualized. Reproductive: Unremarkable as visualized. Bones/joints: 1.35 cm sclerotic density noted in the left ilium, compatible with bone island (enostosis) in patient without history of neoplastic disease. Nuclear medicine bone scan may be useful for further evaluation if clinically indicated. Soft tissues: Unremarkable. IMPRESSION: No acute process Dictated and Authenticated by: Nany Montana MD. Lab Data Lab results reviewed: Yes I reviewed the patient's lab results. Quality:SDOH Health Related Social Needs: No Data to Display PFSH All Active Problems (Updated 09/24/23 @ 15:49 by Ori Shaffer NP) Acute left flank pain (Acute) No-show for appointment (Acute) Fracture of left tibia and fibula (Acute 02/06/19) Medical History (Updated 09/24/23 @ 15:49 by Ori Shaffer NP) Absence epilepsy Surgical History No significant past surgical history Social History Smoking/Tobacco Use Status: Current-Occasional Tobacco Type: e-cigarettes Smoking risk assessment performed?: Yes Alcohol Intake: current Alcohol Intake frequency: a few times a month Alcohol type: beer Drug use: Rarely Substance use type: marijuana Details: Pt states no substance use 09/24/23 Current gender identity: male Do you feel safe at home: Yes Do you feel safe in your relationship?: Yes PAWSS Have you Been Recently Intoxicated or Drunk Within the Last 30 days?: No Have you Ever Experienced Previous Episodes of Alcohol Withdrawal?: No Have you ever Experienced Withdrawal Seizures?: No Have you ever Experienced Delirium Tremens(DT)s?: No Have you ever undergone Alcohol Rehabilitation Treatment (i.e, inpt ot outpatient treatment programs)?: No Have you ever Experienced Blackouts?: No Have you ever Combined Alcohol with other Downers within the last 90 days?: No Have you ever Combined Alcohol with any other Substance of Abuse during the last 90 days?: No Positive Blood Alcohol level on Presentation? [PCS.BAL]: Unable to Obtain Evidence of Increased Autonomic Activity (i.e. HR>120, tremor, sweating, agitation, nausea)?: No Result: 0
--- NOTE | 2023-09-24 15:27 | DI.VRAD_ITS ---
PROCEDURE INFORMATION: Exam: CT Abdomen And Pelvis Without Contrast Exam date and time: 09/24/2023 2:19 PM Age: 22 years old Clinical indication: Other: Left flank pain TECHNIQUE: Imaging protocol: Computed tomography of the abdomen and pelvis without contrast. COMPARISON: No relevant prior studies available. FINDINGS: Liver: Normal. No mass. Gallbladder and biliary ducts: Normal. No calcified stones. No ductal dilation. Pancreas: Normal. No ductal dilation. Spleen: Normal. No splenomegaly. Adrenal glands: Normal. No mass. Kidneys and ureters: There is no evidence of renal or ureteral calcifications. Stomach and bowel: Unremarkable. No obstruction. No mucosal thickening. Appendix: Normal appendix Intraperitoneal space: Unremarkable. No free air. No significant fluid collection. Vasculature: Unremarkable. No abdominal aortic aneurysm. Lymph nodes: Unremarkable. No enlarged lymph nodes. Urinary bladder: Unremarkable as visualized. Reproductive: Unremarkable as visualized. Bones/joints: 1.35 cm sclerotic density noted in the left ilium, compatible with bone island (enostosis) in patient without history of neoplastic disease. Nuclear medicine bone scan may be useful for further evaluation if clinically indicated. Soft tissues: Unremarkable. IMPRESSION: No acute process Dictated and Authenticated by: Nany Montana MD. Ordering:ILA Rehman MD
[2023-09-24 15:41] LABS: ALT 22 U/L (16-63); AST 12 U/L (15-37); Albumin 4.6 g/dL (3.4-5.0); Alkaline Phosphatase 66 U/L (46-116); Anion Gap 9.8 mmol/L (3-11); BUN 12 mg/dL (7-18); Bilirubin, Total 0.71 mg/dL (0.2-1.0); CO2 29.2 mmol/L (21.0-32.0); CREATININE 1.1 mg/dL (0.70-1.30); Calcium 9.4 mg/dL (8.5-10.1); Chloride 102 mmol/L (98-107); Estimated GFR 96.14 (mL/min/1.73m2); Glucose 94 mg/dL (74-106); Lipase 21 U/L (16-77); Potassium 3.5 mmol/L (3.5-5.1); Sodium 141 mmol/L (136-145); Total Protein 8.2 g/dL (6.4-8.2)
== END 2023-09-24 15:53 | disposition home or self-care (01) ==
PROVIDERS: Emergency Provider Nurse Practitioner Family
DX: R10.9 Unspecified abdominal pain (principal)
CPT/HCPCS: 36415; 80053; 83690; 99284; 74176; 85025

== ENCOUNTER 2023-11-17 19:39 | Outpatient (REF) | payer BC, SELFPAY | END 2023-11-17 19:40 | disposition home or self-care (01) | LOC: LBN 19:39 | PROVIDERS: Visit Provider Physician Assistant Medical | DX: J02.9 Acute pharyngitis, unspecified (principal) | CPT/HCPCS: 87070 ==